=== PATIENT | female | born 1980 | race Caucasian/White ===

== ENCOUNTER 2017-12-19 15:26 | Emergency (ER) | payer OTHER ==
[~2017-12-19] VITALS: Ht 162.6 cm; Wt 63.5 kg
[2017-12-19] MEDS ORDERED: IBUPROFEN 600600 M1 PO (17:42)
[2017-12-19] MEDS ORDERED: HYDROCODONE-AP1 EAC6 PO (17:42)
[2017-12-19 18:57] VITALS: BP 130/70
== END 2017-12-19 18:58 | disposition home or self-care (01) ==
LOC: M.ERS 15:26
DX: R51 Headache (principal); M54.2 Cervicalgia; M54.6 Pain in thoracic spine